=== PATIENT | female | born 2000 | race Caucasian/White ===

== ENCOUNTER 2022-12-02 17:51 | Emergency (ER) | payer OTHER, MEDICAID ==
[~2022-12-02] VITALS: Ht 157.5 cm; Wt 77.1 kg
[2022-12-02] MEDS ORDERED: KETOROLAC TROMETHAMINE 60 MG/2 ML VIAL IM ONE (19:00)
[2022-12-02] MEDS ORDERED: NAPR-690 PO (21:04)
[2022-12-02 22:49] VITALS: BP_SYST 128; PULSE 83; RESP 18; TEMP 97.7; O2SAT 100
== END 2022-12-02 22:40 | disposition home or self-care (01) ==
LOC: SED 17:51
DX: S20.212A Contusion of left front wall of thorax, initial encounter (principal); S53.402A Unspecified sprain of left elbow, initial encounter; Z79.899 Other long term (current) drug therapy; V89.2XXA Person injured in unspecified motor-vehicle accident, traffic, initial encounter; Y93.89 Activity, other specified; Y92.89 Other specified places as the place of occurrence of the external cause; Y99.8 Other external cause status
CPT/HCPCS: 99285; 71250; 73080; 76376; 81025; 96372; J1885